=== PATIENT | female | born 1955 | race Caucasian/White ===

== ENCOUNTER 2020-05-27 15:46 | Outpatient (REF) | payer MEDICARE, BC, SELFPAY ==
[2020-05-27 21:02] LABS: Anion Gap 3.5 mmol/L (3-11); BUN 22 mg/dL (7-18); CO2 33.5 mmol/L (21.0-32.0); CREATININE 0.71 mg/dL (0.55-1.02); Calcium 9.2 mg/dL (8.5-10.1); Calculated LDL 163 mg/dL (<100); Chloride 100 mmol/L (98-107); Cholesterol 253 mg/dL (<200); Glucose 103 mg/dL (74-106); HDL Cholesterol 55 mg/dL (40-60); Potassium 3.9 mmol/L (3.5-5.1); Sodium 137 mmol/L (136-145); TSH 0.86 uIU/mL (0.36-3.74); Triglyceride 177 mg/dL (<150)
[2020-05-28 04:58] LABS: Vitamin D 25 Total 60.4 ng/ml (30-100)
== END 2020-05-27 16:06 ==
LOC: NCHCN 15:46
PROVIDERS: PCP Internal Medicine; Visit Provider Internal Medicine
DX: I10 Essential (primary) hypertension (principal); G47.00 Insomnia, unspecified; Z68.31 Body mass index [BMI] 31.0-31.9, adult; D22.9 Melanocytic nevi, unspecified
CPT/HCPCS: 80048; 80061; 82306; 84443

== ENCOUNTER 2022-09-29 16:13 | Outpatient (REF) | payer MEDICARE, BC, SELFPAY ==
[2022-09-29 19:05] LABS: Anion Gap 5.9 mmol/L (3-11); BUN 20 mg/dL (7-18); CO2 32.1 mmol/L (21.0-32.0); CREATININE 0.7 mg/dL (0.55-1.02); Calcium 9.5 mg/dL (8.5-10.1); Calculated LDL 136 mg/dL (<100); Chloride 100 mmol/L (98-107); Cholesterol 227 mg/dL (<200); Estimated GFR 94.15 (mL/min/1.73m2); Glucose 108 mg/dL (74-106); HDL Cholesterol 56 mg/dL (40-60); Potassium 4.3 mmol/L (3.5-5.1); Sodium 138 mmol/L (136-145); Triglyceride 177 mg/dL (<150)
== END 2022-09-29 16:14 | disposition home or self-care (01) ==
LOC: NCHCN 16:13
PROVIDERS: PCP Internal Medicine; Visit Provider Internal Medicine
DX: I10 Essential (primary) hypertension (principal); L65.9 Nonscarring hair loss, unspecified; R53.81 Other malaise; Z00.00 Encounter for general adult medical examination without abnormal findings
CPT/HCPCS: 80048; 80061; 84443

== ENCOUNTER 2025-05-22 17:01 | Outpatient (REF) | payer MEDICARE, BC, SELFPAY ==
[2025-05-22 20:28] LABS: ALT 21 U/L (14-59); AST 20 U/L (15-37); Albumin 3.9 g/dL (3.4-5.0); Alkaline Phosphatase 58 U/L (46-116); Anion Gap 8.7 mmol/L (3-11); BUN 24 mg/dL (7-18); Bilirubin, Total 0.3 mg/dL (0.2-1.0); CO2 26.3 mmol/L (21.0-32.0); Calcium 9.0 mg/dL (8.5-10.1); Calculated LDL 215 mg/dL (<100); Chloride 106 mmol/L (98-107); Cholesterol 299 mg/dL (<200); Estimated GFR 79.22 (mL/min/1.73m2); Glucose 106 mg/dL (74-106); HDL Cholesterol 35 mg/dL (>or=50); Potassium 3.6 mmol/L (3.5-5.1); Sodium 141 mmol/L (136-145); Total Protein 8.1 g/dL (6.4-8.2); Triglyceride 249 mg/dL (<150)
== END 2025-05-22 17:02 | disposition home or self-care (01) ==
LOC: NCHCN 17:01
PROVIDERS: PCP Internal Medicine; Visit Provider Nurse Practitioner Family
DX: E78.5 Hyperlipidemia, unspecified (principal)
CPT/HCPCS: 80053; 80061; 83695